=== PATIENT | female | born 1960 | race African-American/Black ===

== ENCOUNTER 2022-06-28 11:08 | Emergency (ER) | payer MEDICARE ==
[2022-06-28 12:13] LABS: Bilirubin Neg (Negative); Blood, Urine 25 (Negative); Glucose, Urine (Dipstick) 250 mg/dL (Negative); Ketone, Urine Negative (Negative); Leukocyte Negative (Negative); Nitrite Negative (Negative); Protein, Urine (Dipstick) 500 mg/dl (Neg-Trace); Specific Gravity, Urine 1.015 (1.002-1.036); Urobilinogen Normal mg/dL (Less than 2)
[2022-06-28 12:16] LABS: Clarity Clear (Clear)
[2022-06-28 12:20] LABS: INR-International Normal Ratio 0.9; PTT 29.3 sec (22.0-33.0); Prothrombin Time 9.8 sec (9.5-12.1)
[2022-06-28 12:22] LABS: #Monocytes 0.4 10x3/uL (0.0-1.1); #Neutrophils 4.4 10x3/uL (1.5-8.4); %Basophils 0.2 % (0.0-2.0); %Eosinophils 0.2 % (0.0-6.0); %Lymphocytes 10.4 % (18.0-47.0); %Monocytes 7.2 % (0.0-10.0); %Neutrophils 81.4 % (40.0-75.0); Mean Corpuscular HGB CONC 32.3 g/dL (32.0-36.0); Mean Corpuscular Hemoglobin 23.8 pg (27.0-33.0); Mean Corpuscular Volume 73.5 fl (81.6-98.3); Platelet Count 133 10x3/uL (150-450); RBC Distribution Width 15.3 % (11.5-14.5); Red Blood Cell (RBC) Count 5.05 10x6/uL (3.90-5.03); White Blood Cell (WBC) Count 5.4 10x3/uL (3.5-10.5)
[2022-06-28 12:24] LABS: ALT (SGPT) 33 U/L (8-55); AST (SGOT) 45 U/L (5-34); Alkaline Phosphatase 90 U/L (40-110); Anion Gap 12 mmol/L (10-20); BUN (Urea Nitrogen) 14 mg/dL (9.8-20.1); Bilirubin, Total 0.3 mg/dL (0.2-1.2); Calc. Creatinine Clearance 0 mL/min (70-130); Calcium 8.9 mg/dL (7.8-10.44); Carbon Dioxide 24 mmol/L (23-31); Chloride 102 mmol/L (98-107); Estimated GFR 51; Globulin 3.5 g/dL (2.4-3.5); Glucose 162 mg/dL (80-115); Potassium 3.6 mmol/L (3.5-5.1); Protein, Total 7.5 g/dL (5.8-8.1); Sodium 134 mmol/L (136-145)
[2022-06-28 12:30] LABS: Bacteria/HPF None Seen HPF (None Seen); RBC/HPF None Seen HPF (0-3); Squamous Epithelial 0-3 HPF (0-3); WBC/HPF None Seen HPF (0-3)
[2022-06-28 12:44] LABS: SARS-CoV-2 NAA Rapid Test DETECTED (NotDetected)
== END 2022-06-28 13:19 | disposition home or self-care (01) ==
LOC: CSHERS 11:08
DX: U07.1 COVID-19 (principal); E78.00 Pure hypercholesterolemia, unspecified; I10 Essential (primary) hypertension
CPT/HCPCS: 0240U; 71045; 80053; 83605; 85025; 85610; 85730; 87086; 81003; 81015

== ENCOUNTER 2022-07-04 20:15 | Inpatient (IN) | payer MEDICARE ==
[2022-07-04] MEDS ORDERED: Acetaminophen 500 MG TAB ONE (21:08)
[2022-07-04 21:38] LABS: #Monocytes 0.1 10x3/uL (0.0-1.1); #Neutrophils 3.3 10x3/uL (1.5-8.4); %Basophils 0.3 % (0.0-2.0); %Eosinophils 0.3 % (0.0-6.0); %Lymphocytes 13.8 % (18.0-47.0); %Monocytes 2.5 % (0.0-10.0); %Neutrophils 82.6 % (40.0-75.0); Hemoglobin 10.9 g/dL (12.0-15.5); Mean Corpuscular HGB CONC 32.3 g/dL (32.0-36.0); Mean Corpuscular Hemoglobin 23.4 pg (27.0-33.0); Mean Corpuscular Volume 72.3 fl (81.6-98.3); Mean Platelet Volume 10.4 fl (7.4-10.4); Platelet Count 144 10x3/uL (150-450); RBC Distribution Width 14.9 % (11.5-14.5); Red Blood Cell (RBC) Count 4.66 10x6/uL (3.90-5.03)
[2022-07-04 21:54] LABS: ALT (SGPT) 44 U/L (8-55); AST (SGOT) 70 U/L (5-34); Albumin 3.3 g/dL (3.4-4.8); Alkaline Phosphatase 125 U/L (40-110); Anion Gap 13 mmol/L (10-20); BUN (Urea Nitrogen) 18 mg/dL (9.8-20.1); Bilirubin, Total 0.3 mg/dL (0.2-1.2); Calc. Creatinine Clearance 0 mL/min (70-130); Calcium 8.5 mg/dL (7.8-10.44); Carbon Dioxide 19 mmol/L (23-31); Chloride 103 mmol/L (98-107); Estimated GFR 43; Globulin 3.2 g/dL (2.4-3.5); Glucose 110 mg/dL (80-115); Potassium 3.2 mmol/L (3.5-5.1); Protein, Total 6.5 g/dL (5.8-8.1); Sodium 132 mmol/L (136-145)
[2022-07-04] MEDS ORDERED: Potassium Chloride 20 MEQ TAB ONE (22:40)
[2022-07-04 22:48] LABS: CKMB 0.8 ng/mL (0-6.6)
[2022-07-04] MEDS ORDERED: Clopidogrel Bisulfate 75 MG TAB ONE (22:48)
[2022-07-05 00:35] VITALS: BMI 19.4
[2022-07-05] MEDS: Sodium Chloride 0.9% 1,000 ML IV SCH ×3 (01:00→15:52)
[2022-07-05] MEDS ORDERED: Vancomycin HCl 1 GM in Sodium Chloride 0.9% 250 ML 250 ML IVPB SCH (02:00)
[2022-07-05] MEDS ORDERED: Cefepime 1 GM in Sodium Chloride 0.9% 100 ML IVPB SCH (02:00)
[2022-07-05 02:58] LABS: #Monocytes 0.2 10x3/uL (0.0-1.1); #Neutrophils 4.1 10x3/uL (1.5-8.4); %Basophils 0.2 % (0.0-2.0); %Lymphocytes 15.6 % (18.0-47.0); %Monocytes 3.4 % (0.0-10.0); %Neutrophils 80.2 % (40.0-75.0); Hemoglobin 10.7 g/dL (12.0-15.5); Mean Corpuscular HGB CONC 32.9 g/dL (32.0-36.0); Mean Corpuscular Hemoglobin 23.7 pg (27.0-33.0); Mean Corpuscular Volume 71.9 fl (81.6-98.3); Mean Platelet Volume 10.2 fl (7.4-10.4); Platelet Count 155 10x3/uL (150-450); Red Blood Cell (RBC) Count 4.52 10x6/uL (3.90-5.03); White Blood Cell (WBC) Count 5.1 10x3/uL (3.5-10.5)
[2022-07-05 03:15] LABS: ALT (SGPT) 40 U/L (8-55); AST (SGOT) 65 U/L (5-34); Alkaline Phosphatase 113 U/L (40-110); Anion Gap 13 mmol/L (10-20); BUN (Urea Nitrogen) 18 mg/dL (9.8-20.1); Bilirubin, Total 0.3 mg/dL (0.2-1.2); Calc. Creatinine Clearance 37 mL/min (70-130); Calcium 8.1 mg/dL (7.8-10.44); Carbon Dioxide 18 mmol/L (23-31); Chloride 111 mmol/L (98-107); Estimated GFR 46; Glucose 88 mg/dL (80-115); Potassium 3.6 mmol/L (3.5-5.1); Sodium 138 mmol/L (136-145)
[2022-07-05 03:33] LABS: CKMB 1.7 ng/mL (0-6.6)
[2022-07-05] MEDS ORDERED: Acetaminophen 650 MG Suppository PR PRN (06:29)
[2022-07-05] MEDS ORDERED: Meropenem 1 GM in Sodium Chloride 0.9% 100 ML IVPB SCH (06:30)
[2022-07-05] MEDS ORDERED: Ondansetron PF 4 MG/2 ML Vial IVP PRN (06:34)
[2022-07-05] MEDS ORDERED: Bisacodyl 5 MG TAB PO PRN (06:34)
[2022-07-05] MEDS ORDERED: Senokot S 8.6-50 MG TAB PO PRN (06:34)
[2022-07-05] MEDS ORDERED: Ventolin HFA Inhaler 60 PUFF INHALER INH PRN (06:58)
[2022-07-05 07:19] LABS: CKMB 2.1 ng/mL (0-6.6)
[2022-07-05] MEDS ORDERED: Tacrolimus 1 MG CAP PO SCH (09:00)
[2022-07-05] MEDS ORDERED: Dexamethasone 20 MG/5 ML VIAL SLOW IVP SCH (09:00)
[2022-07-05] MEDS: Loperamide HCl 2 MG CAP PO PRN (12:04)
[2022-07-05] MEDS: Meropenem 1 GM in Sodium Chloride 0.9% 100 ML IVPB SCH (15:52)
[2022-07-05] MEDS: Acetaminophen 325 MG TAB PO PRN (16:56)
[2022-07-06] MEDS: Benzonatate 100 MG CAP PO PRN ×3 (01:13→21:16)
[2022-07-06] MEDS ORDERED: Vancomycin HCl 750 MG in Sodium Chloride 0.9% 250 ML 250 ML IVPB SCH (02:00)
[2022-07-06] MEDS: Meropenem 1 GM in Sodium Chloride 0.9% 100 ML IVPB SCH ×2 (02:40→15:46)
[2022-07-06] MEDS: Loperamide HCl 2 MG CAP PO PRN (02:48)
[2022-07-06] MEDS: Acetaminophen 325 MG TAB PO PRN ×2 (02:48→21:16)
[2022-07-06 04:31] LABS: #Eosinphils 0.1 10x3/uL (0.0-0.5); #Monocytes 0.2 10x3/uL (0.0-1.1); #Neutrophils 5.4 10x3/uL (1.5-8.4); %Eosinophils 0.9 % (0.0-6.0); %Lymphocytes 9.6 % (18.0-47.0); %Monocytes 3.6 % (0.0-10.0); %Neutrophils 85.3 % (40.0-75.0); Hemoglobin 11.3 g/dL (12.0-15.5); Mean Corpuscular HGB CONC 33.2 g/dL (32.0-36.0); Mean Corpuscular Hemoglobin 23.9 pg (27.0-33.0); Mean Platelet Volume 10.2 fl (7.4-10.4); Platelet Count 154 10x3/uL (150-450); RBC Distribution Width 15.3 % (11.5-14.5); Red Blood Cell (RBC) Count 4.72 10x6/uL (3.90-5.03); White Blood Cell (WBC) Count 6.4 10x3/uL (3.5-10.5)
[2022-07-06 04:55] LABS: ALT (SGPT) 41 U/L (8-55); AST (SGOT) 83 U/L (5-34); Albumin 2.9 g/dL (3.4-4.8); Alkaline Phosphatase 112 U/L (40-110); Anion Gap 11 mmol/L (10-20); BUN (Urea Nitrogen) 11 mg/dL (9.8-20.1); Bilirubin, Total 0.2 mg/dL (0.2-1.2); Calc. Creatinine Clearance 45 mL/min (70-130); Calcium 8.2 mg/dL (7.8-10.44); Carbon Dioxide 19 mmol/L (23-31); Chloride 108 mmol/L (98-107); Estimated GFR 58; Globulin 3.1 g/dL (2.4-3.5); Glucose 89 mg/dL (80-115); Potassium 3.1 mmol/L (3.5-5.1); Sodium 135 mmol/L (136-145)
[2022-07-06] MEDS: Labetalol HCl 100 MG/20 ML VIAL SLOW IVP PRN (05:38)
[2022-07-06] MEDS: Sodium Chloride 0.9% 1,000 ML IV SCH (05:39)
[2022-07-06] MEDS ORDERED: Potassium Chloride 20 MEQ TAB PO SCH (08:00)
[2022-07-06] MEDS: cloNIDine 0.1 MG TAB PO SCH ×3 (08:34→21:18)
[2022-07-06] MEDS ORDERED: Tacrolimus 1 MG CAP PO SCH (09:00)
[2022-07-06] MEDS: Doxazosin 2 MG TAB PO SCH (09:29)
[2022-07-06] MEDS: cycloSPORINE, Modified 25 MG CAP PO SCH (15:02)
[2022-07-06] MEDS: Cepastat Lozenges 1 LOZ PO PRN (21:16)
[2022-07-07] MEDS: Guaifenesin DM 100-10/5 ML UDCUP PO PRN ×2 (00:15→08:55)
[2022-07-07] MEDS: Cepastat Lozenges 1 LOZ PO PRN (00:16)
[2022-07-07] MEDS: Acetaminophen 325 MG TAB PO PRN (01:02)
[2022-07-07 01:33] LABS: Vancomycin, Trough 7.2 ug/mL
[2022-07-07] MEDS: Meropenem 1 GM in Sodium Chloride 0.9% 100 ML IVPB SCH ×3 (02:29→23:52)
[2022-07-07 04:48] LABS: #Eosinphils 0.1 10x3/uL (0.0-0.5); #Monocytes 0.3 10x3/uL (0.0-1.1); #Neutrophils 3.9 10x3/uL (1.5-8.4); %Basophils 0.2 % (0.0-2.0); %Eosinophils 1.6 % (0.0-6.0); %Lymphocytes 15.5 % (18.0-47.0); %Monocytes 5.3 % (0.0-10.0); %Neutrophils 76.6 % (40.0-75.0); Hemoglobin 11.1 g/dL (12.0-15.5); Mean Corpuscular HGB CONC 32.4 g/dL (32.0-36.0); Mean Corpuscular Hemoglobin 23.4 pg (27.0-33.0); Mean Corpuscular Volume 72.2 fl (81.6-98.3); Mean Platelet Volume 10.6 fl (7.4-10.4); Platelet Count 167 10x3/uL (150-450); RBC Distribution Width 15.3 % (11.5-14.5); Red Blood Cell (RBC) Count 4.75 10x6/uL (3.90-5.03); White Blood Cell (WBC) Count 5.1 10x3/uL (3.5-10.5)
[2022-07-07 05:07] LABS: ALT (SGPT) 46 U/L (8-55); AST (SGOT) 83 U/L (5-34); Albumin 2.9 g/dL (3.4-4.8); Alkaline Phosphatase 120 U/L (40-110); Anion Gap 10 mmol/L (10-20); BUN (Urea Nitrogen) 10 mg/dL (9.8-20.1); Bilirubin, Total 0.3 mg/dL (0.2-1.2); Calc. Creatinine Clearance 42 mL/min (70-130); Calcium 8.4 mg/dL (7.8-10.44); Carbon Dioxide 22 mmol/L (23-31); Chloride 107 mmol/L (98-107); Estimated GFR 54; Globulin 3.1 g/dL (2.4-3.5); Glucose 111 mg/dL (80-115); Potassium 3.2 mmol/L (3.5-5.1); Sodium 136 mmol/L (136-145)
[2022-07-07] MEDS: Labetalol HCl 100 MG/20 ML VIAL SLOW IVP PRN (05:51)
[2022-07-07] MEDS: cloNIDine 0.1 MG TAB PO SCH ×3 (08:54→22:13)
[2022-07-07] MEDS: Amlodipine 10 MG TAB PO SCH (08:54)
[2022-07-07] MEDS: cycloSPORINE, Modified 25 MG CAP PO SCH (09:00)
[2022-07-07] MEDS ORDERED: PATIENT'S HOME MEDICATION PO SCH (09:00)
[2022-07-07] MEDS ORDERED: Potassium Chloride 20 MEQ TAB PO SCH (09:00)
[2022-07-07] MEDS: Doxazosin 2 MG TAB PO SCH (10:34)
[2022-07-08 06:50] LABS: Anion Gap 14 mmol/L (10-20); BUN (Urea Nitrogen) 9 mg/dL (9.8-20.1); Calc. Creatinine Clearance 44 mL/min (70-130); Calcium 8.4 mg/dL (7.8-10.44); Carbon Dioxide 19 mmol/L (23-31); Chloride 107 mmol/L (98-107); Estimated GFR 56; Glucose 97 mg/dL (80-115); Potassium 3.6 mmol/L (3.5-5.1); Sodium 136 mmol/L (136-145)
[2022-07-08] MEDS: cloNIDine 0.1 MG TAB PO SCH (09:10)
[2022-07-08] MEDS: cycloSPORINE, Modified 25 MG CAP PO SCH (09:10)
[2022-07-08] MEDS: Amlodipine 10 MG TAB PO SCH (09:12)
[2022-07-08] MEDS: Doxazosin 2 MG TAB PO SCH (09:12)
[2022-07-08 10:31] VITALS: BP 162/89; TEMP 98.8
== END 2022-07-08 12:41 | disposition home or self-care (01) | DRG 177 ==
LOC: CSHERS 20:15 → CSHTELE 23:12 → UNDOADMIN 07-05 00:08
PROVIDERS: ADMIT Internal Medicine; ATTEND Internal Medicine
PROC: 8E0ZXY6 Isolation (ICD-10-PCS; 2022-07-04)
PROC: 3E0333Z Introduction of Anti-inflammatory into Peripheral Vein, Percutaneous Approach (ICD-10-PCS; principal; 2022-07-05)
DX: U07.1 COVID-19 (principal); I21.A1 Myocardial infarction type 2; J12.82 Pneumonia due to coronavirus disease 2019; N17.9 Acute kidney failure, unspecified; E87.1 Hypo-osmolality and hyponatremia; T86.19 Other complication of kidney transplant; I31.3 Pericardial effusion (noninflammatory); E86.0 Dehydration; E78.00 Pure hypercholesterolemia, unspecified; E87.6 Hypokalemia; I51.7 Cardiomegaly; D63.8 Anemia in other chronic diseases classified elsewhere; D69.6 Thrombocytopenia, unspecified; Y83.8 Other surgical procedures as the cause of abnormal reaction of the patient, or of later complication, without mention of misadventure at the time of the procedure; E11.22 Type 2 diabetes mellitus with diabetic chronic kidney disease; I12.9 Hypertensive chronic kidney disease with stage 1 through stage 4 chronic kidney disease, or unspecified chronic kidney disease; N18.30 Chronic kidney disease, stage 3 unspecified; D63.1 Anemia in chronic kidney disease; E88.09 Other disorders of plasma-protein metabolism, not elsewhere classified; Z98.890 Other specified postprocedural states; Z88.5 Allergy status to narcotic agent; Z88.0 Allergy status to penicillin; Z88.8 Allergy status to other drugs, medicaments and biological substances
CPT/HCPCS: 36415; 71045; 71250; 76770; 80048; 80053; 80202; 82550; 82553; 83605; 83880; 84484; 85025; 87040; 93005; 93306; 94760; 96360; J0692; J2185; J3370; J3490; J7050; J7507; J7515

== ENCOUNTER 2023-01-20 12:59 | Outpatient (CLI) | payer MEDICARE | END 2023-01-20 13:00 | disposition home or self-care (01) | LOC: CSHMAMMO 12:59 | PROVIDERS: ATTEND Internal Medicine | DX: Z12.31 Encounter for screening mammogram for malignant neoplasm of breast (principal); Z13.820 Encounter for screening for osteoporosis; M81.0 Age-related osteoporosis without current pathological fracture; Z78.0 Asymptomatic menopausal state | CPT/HCPCS: 77063; 77067; 77080 ==